=== PATIENT | male | born 1995 | race African-American/Black ===

== ENCOUNTER 2020-02-09 04:58 | Emergency (ER) | payer BC, MEDICAID ==
[~2020-02-09] VITALS: Ht 177.8 cm; Wt 71.0 kg
[2020-02-09 06:26] VITALS: BP 121/78
== END 2020-02-09 06:46 | disposition home or self-care (01) ==
LOC: ER 04:58
DX: F12.980 Cannabis use, unspecified with anxiety disorder (principal); R03.0 Elevated blood-pressure reading, without diagnosis of hypertension
CPT/HCPCS: 99283